=== PATIENT | female | born 1965 | race Caucasian/White ===

== ENCOUNTER → 2024-04-24 10:09 | Outpatient (REF) | payer MEDICARE, OTHER, SELFPAY | LOC: RCS 10:09 | PROVIDERS: ATTENDING PHYSICIAN Internal Medicine; FAMILY PHYSICIAN Family Medicine | DX: Z95.0 Presence of cardiac pacemaker (principal); E66.9 Obesity, unspecified | CPT/HCPCS: 93306 ==

== ENCOUNTER → 2024-08-19 08:00 | Outpatient (REF) | payer MEDICARE, OTHER, SELFPAY | LOC: HWRAD 08:00 | PROVIDERS: ATTENDING PHYSICIAN Student in an Organized Health Care Education/Training Program; FAMILY PHYSICIAN Family Medicine | DX: M54.59 Other low back pain (principal) | CPT/HCPCS: 72131 ==

== ENCOUNTER → 2024-10-13 08:02 | Outpatient (REF) | payer MEDICARE, OTHER, SELFPAY | LOC: RCS 08:02 | PROVIDERS: ATTENDING PHYSICIAN Internal Medicine; FAMILY PHYSICIAN Family Medicine | DX: I49.5 Sick sinus syndrome (principal); E66.01 Morbid (severe) obesity due to excess calories | CPT/HCPCS: 93306 ==

== ENCOUNTER → 2025-06-08 07:36 | Outpatient (REF) | payer MEDICARE, OTHER, SELFPAY | LOC: RAD 07:36 | PROVIDERS: ATTENDING PHYSICIAN Family Medicine | DX: S22.050A Wedge compression fracture of T5-T6 vertebra, initial encounter for closed fracture (principal) | CPT/HCPCS: 77080 ==

== ENCOUNTER 2025-06-08 08:13 | Emergency (ER) | payer MEDICARE, OTHER, SELFPAY ==
[2025-06-08 08:19] VITALS: BP 128/86
[2025-06-08 09:05] VITALS: BP 143/94
--- NOTE | 2025-06-08 09:36 | EDRN ---
Dr. Saleem in room w/ pt at this time.
--- NOTE | 2025-06-08 09:49 | ED.GENMED ---
History of Present Illness
General
Chief Complaint: Head Injury
Source: patient
Time Seen by Provider: 06/08/25 09:23
History of Present Illness
History of Present Illness:
This patient is a 59-year-old female presents emergency department after suffering 2 falls within the last 2 weeks, most recently last night. She describes getting up to use the bathroom in the middle the night. She stood on the edge of the bed
before standing up and felt okay. Then, as she got into the bathroom she says her head started to feel 'woozy', associate with feeling off balance, causing her to fall forward. She did hit her head. She suspects that she lost consciousness for no
more than a few seconds. She did need assistance getting back. She noted bruising to her knees bilaterally and the left side of the forehead area. She slept in the night and came to the hospital this morning to get a DEXA scan which she
completed. She did eat today without nausea or vomiting. She denies new neck pain, numbness, tingling, chest pain, shortness of breath, abdominal pain. She does note bilateral knee pain and a mild 'ache' in the left forehead area. She also
states she just feels achy all over. Patient did have a similar fall approximately 2 weeks ago, also in the middle the night while going to the bathroom. For both events, no preceding chest pain, palpitations, diaphoresis, or other abnormalities
Past History
Past History
ED Past Medical History: COPD (Possible being worked up as of 03/27/2021), GERD, HTN, Hypercholesterolemia, NIDDM, Hypothyroidism and Other (Celiac disease, RA, deaf, Kidney stones, PE)
ED Past Surgical History: Appendectomy, Cholecystectomy, Orthopedic (Left shoulder and left knee surgery) and Other (Bariatric surgery�vertical sleeve, cochlear implant)
Social History
Tobacco: Non-smoker
Alcohol: None
Drug: None
Personal:
Living: with family
Employment: Not employed
Phy Exam
Physical Exam
Physical Exam:
GENERAL: Alert , in no apparent distress
EYE: pupils equal and reactive, EOMI, no nystagmus
NECK: Supple, no significant adenopathy, no midline tenderness.
ENT: o/p clr, mm slightly dry. Small bruise L frontal area, no ritchie, no raccoon, no signs head/facial inj otherweise
CARDIAC: Regular rate and rhythm .
LUNGS: Clear breath sounds bilaterally, no acute respiratory distress, no wheezes/rales/rhonchi, no crepitus
ABDOMEN: Soft, without focal tenderness, no r/g, no cvat. There is a small amount of bruising noted at the mid upper without associated tenderness to palpation
NEUROLOGICAL: Alert and oriented, no focal neuro deficits
SKIN: Warm and dry, skin intact.
MUSCULOSKELETAL: No edema, well perfused. There is ttp and bruising noted at bilat knee, no deformity, ROM sl dec due to pain.
PSYCH: Normal and appropriate interaction.
Course
Orders/Labs/Results
Orders:
Orders
06/08/25 08:22
Electrocardiogram (*1) Urgent
Reason for Study: Vertigo / Dizzy
CT Head W/o Iv Contrast Urgent
Comment:
Reason For Exam: fall with head strike
EKG- Treatment ONCE
06/08/25 09:21
Cardiac Monitoring- Treatment ONCE
IV Insert/Care/Rem.- Treatment PRN
06/08/25 09:34
Basic Metabolic Panel Urgent
Comment: [id number]
Complete Blood Count/With Diff Urgent
Manual Differential Urgent
06/08/25 09:53
Interrogate Pacemaker- Treatment ONCE
06/08/25 11:39
Knee, Left 4 or More Views [CR Knee - Left 4 Or More View*] Urgent
Comment:
Reason For Exam: injury
Knee, Right 4 or More Views [CR Knee- Right 4 Or More View*] Urgent
Comment:
Reason For Exam: injury
Abnormal Lab Results
06/08/25
09:34
WBC 2.6 L 10^3/uL
(4.8-10.8)
MCH 31.7 H pg
(27.0-31.0)
Abs Neuts (Manual) 1.1 L 10^3/uL
(1.4-6.5)
Monocytes (Manual) 16 H %
(2-9)
Carbon Dioxide 32 H mmol/L
(22-30)
BUN 22 H mg/dl
(7-17)
Glucose 116 H mg/dl
(70-99)
06/08/25 09:34
06/08/25 09:34
Vital Signs
Initial and Last Documented VS:
Initial Vital Signs
Temp Pulse Resp BP Pulse Ox
98.5 F 98 18 128/86 97
06/08/25 08:19 06/08/25 08:19 06/08/25 08:19 06/08/25 08:19 06/08/25 08:19
Last Documented Vital Signs
Temp Pulse Resp BP Pulse Ox
98.5 F 74 19 122/77 92
06/08/25 08:19 06/08/25 13:00 06/08/25 13:00 06/08/25 13:00 06/08/25 13:00
*Pulse Oximetry
SaO2: 97
Oxygen Mode of Delivery: Room air
Patient hypoxic: no
*Critical Care Note
Total Time (30-74mins, 75-104mins- exclusive of procedures): Not Applicable
Update Note
Update Note:
Patient presents to the Emergency Department with fall/syncope____
Number and Complexity of Problems Addressed at the Encounter
� Chronic conditions affecting care:
� Acute Exacerbation and/or Progression of Chronic Illness:
� Differential Diagnosis includes: But not limited to arrhythmia, anemia, electrolyte disorder, intracranial bleed, etc. etc.
Amount and/or Complexity of Data to be Reviewed and Analyzed
� I performed an independent evaluation of and my interpretation is:
EKG: Read by me, normal sinus rhythm, normal rate, normal axis, no acute ischemia
CT:No acute intracranial abnormality, noting the presence of streak artifact within the right cerebral hemisphere from patient's cochlear implant..
Xrays:nad knees bilat
Laboratory Studies: Neutropenia which is somewhat chronic, otherwise NAD
Other:
� Review of other/old records reveals:
� Clinical information was obtained by an independent historian: Mother who is bedside
� Prescriptions/Medications Considered but not given:
� Further testing considered but not performed:
Risk of Complications and/or Morbidity or Mortality of Patient Management
� Social determinants of health affecting care:
� Discussion with other providers (PCP, Hospitalists, Consultants, etc):
� Escalation of care including admission/observation vs risk of discharge considered: Interrogation of pacer notes 0 events since it was last interrogated.
Both of patient's episodes of fall/near syncope were in the middle the night when going to the bathroom. She also notes that these episodes started after she increased her dose of Ozempic. I do note that 8% of patients on Ozempic develop
dizziness. Given no acute findings on her ECG, and interrogation unremarkable, highly doubt acute cardiac event as a reason for her symptoms. Workup otherwise generally unremarkable, neuro intact. Discussed with patient importance of close
follow-up and reasons return to the ER.
ED Attending Note
-
Portions of this chart may have been created with voice recognition software.� Occasional wrong word or��sound alike� substitutions may have occurred due to the inherent limitations of voice recognition software.
Discharge Plan
Departure
Patient Disposition: Home (Routine Discharge)
Date of Disposition: 06/08/25
Time of Disposition: 13:28
Patient with high blood pressure during this ER visit?: Yes
Condition: Good
Discharge Problem:
Contusion, Syncope
Instructions: Syncope (fainting), Contusion (DC), BLOOD PRESSURE
Prescriptions:
No Action
metoprolol tartrate 25 MG tablet
25 mg PO BID
cholecalciferol (vitamin D3) 2,000 UNITS tablet
2,000 unit PO DAILY
atorvastatin 40 MG tablet
40 mg PO HS
metformin 500 MG tablet
500 mg PO HS
tizanidine 4 MG tablet
8 mg PO HS
trazodone 100 MG tablet
200 mg PO HS
tizanidine 4 mg Tablet
4 mg PO DAILY@1200
folic acid 1 mg Tablet
1 mg PO DAILY
docusate sodium 100 mg capsule
100 mg PO DAILY
pantoprazole 40 MG tablet,delayed release (DR/EC)
40 mg PO DAILY
Patient Comments:
Substituted OTC pepcid 09/12 & 09/13 per MD instructions
cyanocobalamin (vitamin B-12) [Vitamin B-12] 2,500 mcg Tablet, Sublingual
2,500 mcg SUBLINGUAL DAILY
melatonin 10 mg Tablet
10 mg PO HS PRN (Reason: insomnia)
Actemra
Patient Comments:
Pt doesn't recall the dose. Monthly infusion.
hydromorphone [Dilaudid] 2 mg Tablet
2 mg PO TID
gabapentin 300 mg Capsule
300 mg PO TID
duloxetine 30 mg Capsule,Delayed Release(Dr/Ec)
30 mg PO BID
Eliquis 5 mg Tablet
5 mg PO BID
magnesium 500 mg Tablet
15 mg PO DAILY
calcium 500 mg Tablet
1,000 mg PO QPM
Vitamin C 100 mg Tablet
150 mg PO DAILY
Patient Comments:
Per pt she takes 1 tab that is 150 mg.
Probiotic
1 tab PO DAILY
Referrals:
Jose Mcdonald MD [Family Provider, Family Practice] - Tomorrow
Activity Restrictions/Additional Instructions:
PLEASE SEE YOUR DOCTOR PROMPTLY FOR FURTHER EVALUATION. IF YOU DEVELOP DIZZINESS, CHEST PAIN, SHORTNESS OF BREATH, SEVERE HEADACHE, REPEATED VOMITING, CHANGE IN SPEECH, CHANGE IN VISION, OR OTHER WORRISOME SIGNS, PLEASE RETURN TO THE ER IMMEDIATELY!
Interventions
Interventions:
*Risk Screen - Suicide Last Done: 06/08/25 08:19
*General Assessment Last Done: 06/08/25 09:05
*Neglect/Abuse Screening Last Done: 06/08/25 09:05
*ED- Fall Risk Assessment Last Done: 06/08/25 09:05
*ED COVID-19 Vaccine History Last Done: 06/08/25 09:05
*Nursing Disposition Last Done: 06/08/25 13:44
ED- Neurological Assessment Last Done: 06/08/25 09:05
ED-Skin Assessment Last Done: 06/08/25 09:05
Discharge Date and Time
Discharge Date/Time: 06/08/25 13:45
Print Language: YI
[2025-06-08 09:52] LABS: Hematocrit 40.3 % (37.0-47.0); Hemoglobin 13.8 g/dL (12.0-16.0); Mean Corp Hgb Conc. 34.2 g/dL (33.0-37.0); Mean Corpuscular Volume 92.6 fL (81.0-99.0); Platelet Count 152 10^3/uL (130-400); Red Cell Dist. Width 12.5 % (11.5-14.5)
[2025-06-08 10:00] VITALS: BP 142/80
[2025-06-08 10:21] LABS: Blood Urea Nitrogen 22 mg/dl (7-17); Calcium 9.7 mg/dl (8.4-10.2); Carbon Dioxide 32 mmol/L (22-30); Chloride 106 mmol/L (98-107); Glucose 116 mg/dl (70-99); Sodium 139 mmol/L (135-145); eGFR > 60.00
--- NOTE | 2025-06-08 10:34 | EDRN ---
Pt OOB to BR post pacemaker interrogation. [employer] informed to let me know when results are completed.
[2025-06-08 11:00] VITALS: BP 128/78
[2025-06-08 11:09] LABS: Absolute Neutrophils -Man Diff 1.1 10^3/uL (1.4-6.5); Normal RBC Morphology Yes; Platelets Checked Yes; Total Cells Counted 100
[2025-06-08 12:00] VITALS: BP 132/78
--- NOTE | 2025-06-08 12:07 | EDRN ---
Dr. Saleem in room w/ pt at this time.
[2025-06-08 13:00] VITALS: BP 122/77
== END 2025-06-08 13:45 | disposition home or self-care (01) ==
LOC: EMR 08:13
PROVIDERS: EMERGENCY PHYSICIAN Emergency Medicine; FAMILY PHYSICIAN Family Medicine
DX: R55 Syncope and collapse (principal); S80.02XA Contusion of left knee, initial encounter; S80.01XA Contusion of right knee, initial encounter; S00.83XA Contusion of other part of head, initial encounter; W18.39XA Other fall on same level, initial encounter; Y93.01 Activity, walking, marching and hiking; I10 Essential (primary) hypertension; K21.9 Gastro-esophageal reflux disease without esophagitis; E11.9 Type 2 diabetes mellitus without complications; E03.9 Hypothyroidism, unspecified; K90.0 Celiac disease; M06.9 Rheumatoid arthritis, unspecified; E78.00 Pure hypercholesterolemia, unspecified; H91.90 Unspecified hearing loss, unspecified ear; Z95.0 Presence of cardiac pacemaker; Z87.442 Personal history of urinary calculi; Z79.84 Long term (current) use of oral hypoglycemic drugs; Z79.01 Long term (current) use of anticoagulants; Z90.49 Acquired absence of other specified parts of digestive tract; Z98.84 Bariatric surgery status; Z88.1 Allergy status to other antibiotic agents; Z88.8 Allergy status to other drugs, medicaments and biological substances; Z91.018 Allergy to other foods
CPT/HCPCS: 99285; 93288; 70450; 73564; 80048; 85025; 93005

== ENCOUNTER → 2025-09-06 12:00 | Outpatient (REF) | payer MEDICARE, OTHER, SELFPAY | LOC: DHSLP 12:00 | PROVIDERS: ATTENDING PHYSICIAN Internal Medicine; FAMILY PHYSICIAN Family Medicine | DX: G47.33 Obstructive sleep apnea (adult) (pediatric) (principal) | CPT/HCPCS: 95806 ==

== ENCOUNTER → 2025-09-09 08:26 | Outpatient (REF) | payer MEDICARE, OTHER, SELFPAY ==
[2025-09-09 09:13] LABS: INR 0.95; PT 13.2 Sec (11.4-14.6)
[2025-09-09 10:13] VITALS: BP 177/93; BP_SYST 89
[2025-09-09 12:35] VITALS: BP 157/85; BP_SYST 82
== END ==
LOC: RAD 08:26
PROVIDERS: ATTENDING PHYSICIAN Neurological Surgery; FAMILY PHYSICIAN Family Medicine; REFERRING PHYSICIAN Physician Assistant
DX: D68.8 Other specified coagulation defects (principal); D68.9 Coagulation defect, unspecified; G95.9 Disease of spinal cord, unspecified
CPT/HCPCS: 36415; 62305; 72050; 72114; 72126; 85610